=== PATIENT | male | born 1970 | race Caucasian/White ===

== ENCOUNTER 2023-10-18 16:17 | Emergency (ER) | payer OTHER, SELFPAY ==
[2023-10-18 16:23] VITALS: BP 130/80; PULSE 72; RESP 18; TEMP 36.8; O2SAT 97; BMI 40.4
[2023-10-18 16:28] VITALS: PULSE 80
--- NOTE | 2023-10-18 16:29 | XR_ITS ---
The [address] [address] Patient Name: NICHOLAS ASIF MRN: [id number] date: 1970 Sex: M Assigned Patient Location: ER Current Patient Location: ER Accession/Order Number: [id number] Exam Date: 10/18/2023 16:45 Report Date: 10/18/2023 17:21 At the request of: HERLINDA DEAL Procedure: XR knee LT 4V EXAM: XR knee LT 4V HISTORY: The patient is a 53-year-old male with knee pain COMPARISON: None. FINDINGS: The left knee is radiographically negative with no evidence of fracture, dislocation, joint space narrowing, osteophytes, or other osseous or articular abnormalities. XR/XR knee LT 4V IMPRESSION: Negative. Electronically authenticated by: LAKESHIA FRANK Date: 10/18/2023 17:21
--- NOTE | 2023-10-18 16:41 | ED.LOWEXI1 ---
HPI - Extremity Injury (Lower) General Chief Complaint: Extremity Injury, Lower Stated Complaint: LOWER EXTREMITY INJURY Time Seen by Provider: 10/18/23 16:18 Source: patient and family Mode of arrival: walk-in Limitations: physical limitation History of Present Illness HPI Narrative: Patient is a 53-year-old male who presents to the emergency department for the evaluation of left knee pain. He states he fell on his left knee several weeks ago and it has been sore and bothering him, but today while walking he felt a pop in his left knee. He states the knee buckled. He has had no significant swelling, he reports no pain to the left calf or left thigh. No medications taken prior to arrival. Related Data Previous Rx's Medication Instructions Recorded hydrocodone 5 mg-acetaminophen 325 1 tab PO Q6H PRN pain 3 days #12 10/18/23 mg tablet tabs naproxen sodium 550 mg tablet 550 mg PO BID PRN pain #10 tabs 10/18/23 Allergies Allergy/AdvReac Type Severity Reaction Status Date / Time cephalexin Allergy Verified 10/18/23 16:22 Review of Systems ROS Constitutional Denies: fever or chills Ears, nose, mouth, and throat Denies: throat pain or nasal congestion Cardiovascular Denies: chest pain Respiratory Denies: shortness of breath or cough Gastrointestinal Denies: nausea or vomiting Musculoskeletal Reports: extremity pain, joint pain and limited range of motion; Denies: back pain or neck pain Integumentary/Breast Denies: rash Neurological Denies: headache Hematologic/Lymphatic Denies: easy bruising PFSH PFSH Social History Smoking status: Former smoker Exam Narrative Exam Narrative: Gen.: Awake, alert, in no distress Head: Normocephalic, atraumatic ENT: Moist mucous membranes Respiratory: No respiratory distress Extremities: Diffuse mild swelling and tenderness of the left anterior knee, mild crepitance noted on palpation of the patella. No bony point tenderness or obvious deformity. Psych: Normal mood and affect Neuro: No focal neuro deficit Skin: Warm, dry, intact Constitutional Vital Signs, click to edit/add: Last Vital Signs Temp 98.2 F 10/18/23 16:23 Pulse 80 10/18/23 16:28 Resp 18 10/18/23 16:23 BP 130/80 10/18/23 16:23 Pulse Ox 97 10/18/23 16:23 O2 Del Method Room Air 10/18/23 16:23 Course Vital Signs Vital signs: Vital Signs Temperature 98.2 F 10/18/23 16:23 Pulse Rate 72 10/18/23 16:23 Respiratory Rate 18 10/18/23 16:23 Blood Pressure 130/80 10/18/23 16:23 Pulse Oximetry 97 10/18/23 16:23 Oxygen Delivery Method Room Air 10/18/23 16:23 Temperature 98.2 F 10/18/23 16:23 Pulse Rate 80 10/18/23 16:28 Respiratory Rate 18 10/18/23 16:23 Blood Pressure 130/80 10/18/23 16:23 Pulse Oximetry 97 10/18/23 16:23 Oxygen Delivery Method Room Air 10/18/23 16:23 MDM - Extremity Injury (Lower) MDM Narrative Medical decision making narrative: X-rays with no evidence of fracture or dislocation. These were read by the radiologist. Patient medicated for pain in the ER. He is placed in an Toribio wrap, knee immobilizer. He remains neurovascularly intact. He states he has crutches at home. He would like to follow-up with Dr. Angulo who evaluated him for his right knee when he had a meniscal tear. Rest, ice, elevate. Short course of analgesics and NSAIDs given for home. Return to the ER if symptoms change or worsen Medical Records Attestation: I reviewed the patient's medical records. Imaging Data XR knee: Attestation: I have reviewed the pertinent imaging results. Radiologist's impression: ITS Impressions Knee X-Ray 10/18/23 16:29 IMPRESSION: Negative. Electronically authenticated by: LAKESHIA FRANK Date: 10/18/2023 17:21 Discharge Plan Discharge Chief Complaint: Extremity Injury, Lower Clinical Impression: Left knee pain Patient Disposition: Home, Self-Care Time of Disposition Decision: 17:26 Prescriptions / Home Meds: New hydrocodone-acetaminophen 5-325 mg tablet 1 tab PO Q6H PRN (Reason: pain) 3 Days Qty: 12 0RF Rx Instructions: DX: M25.562 naproxen sodium 550 mg tablet 550 mg PO BID PRN (Reason: pain) Qty: 10 0RF Instructions: Knee Pain (ED) Stand Alone Forms: Portal Instructions Referrals: Rob Angulo MD [Physician] - 1 week ([phone])
[2023-10-18] MEDS: HYDROCODONE/ACET 5-325 MG TABLET 1 TAB PO (17:01)
== END 2023-10-18 17:46 | disposition home or self-care (01) ==
LOC: ER 17:36
PROVIDERS: Emergency Provider Emergency Medicine
DX: M25.562 Pain in left knee (principal); Z87.891 Personal history of nicotine dependence; Z91.81 History of falling
CPT/HCPCS: 73564; 99284